=== PATIENT | female | born 1995 | race African-American/Black ===

== ENCOUNTER 2016-12-20 20:58 | Emergency (ER) | payer OTHER ==
[~2016-12-20] VITALS: Ht 182.9 cm; Wt 61.2 kg
[2016-12-20 21:00] VITALS: BP 134/96
[2016-12-20 21:14] LABS: URINE BILIRUBIN NEGATIVE (Negative); URINE BLOOD 3+ (Negative); URINE COLOR COLORLESS; URINE GLUCOSE-RANDOM* NEGATIVE (Negative); URINE KETONES NEGATIVE (Negative); URINE NITRITE NEGATIVE (Negative); URINE PROTEIN (DIPSTICK) NEGATIVE (Negative); URINE SPECIFIC GRAVITY <= 1.005 (1.003-1.035); URINE UROBILINOGEN 0.2 E.U./dl (0.2-1.0)
[2016-12-20 21:26] LABS: BACTERIA 1-9 Few /HPF (None Seen); CASTS None Seen /LPF (None Seen); CRYSTALS None Seen /LPF (None Seen); SQUAMOUS 0-3 Few /LPF (0-3); URINE RBC 0-2 Rare /HPF (0-2); URINE WBC 6-15 Few /HPF (0-5)
[2016-12-20] MEDS ORDERED: KEFLEX500 MG PO (21:31)
[2016-12-20] MEDS ORDERED: PHENAZOPYRIDIN200 M2 PO (21:31)
== END 2016-12-20 21:41 | disposition home or self-care (01) ==
LOC: ER 20:58
PROVIDERS: Nurse Practitioner Family
DX: N39.0 Urinary tract infection, site not specified (principal)